=== PATIENT | female | born 1935 | race Caucasian/White ===

== ENCOUNTER → 2016-10-31 | Outpatient (CLI) | payer OTHER | END | disposition home or self-care (01) | LOC: YCFC.O 14:09 | PROVIDERS: ATTEND Nurse Practitioner Family | DX: I10 Essential (primary) hypertension (principal); R60.0 Localized edema; R10.11 Right upper quadrant pain; Z13.220 Encounter for screening for lipoid disorders; R10.13 Epigastric pain; R30.0 Dysuria ==

== ENCOUNTER → 2016-11-04 | Outpatient (CLI) | payer OTHER ==
--- NOTE | 2016-11-04 14:12 | US ---
EXAM DESCRIPTION: Gall Bladder CLINICAL HISTORY: 81 years Female, RUQ PAIN COMPARISON: None. FINDINGS: Limited abdominal sonography demonstrates a normal appearance of the region of the pancreas and a normal-appearing liver with normal echogenicity. Gallbladder is distended and abnormal with either conglomerate or likely very large stones measuring is much is 4.8 cm in length. Significant wall thickening is not apparent and the common bile duct is normal at 2.6 mm. No abdominal ascites is noted. No focal cystic or solid hepatic masses noted. IMPRESSION: 1. Distended gallbladder with likely a very large stone or conglomerate stones almost completely filling the gallbladder with dense acoustic shadowing. 2. No wall thickening or edema the gallbladder or ductal dilation is noted. 3. Normal appearance of the liver and pancreas with nonvisualization of the right kidney. Electronically signed by: Ethan Ghosh MD 11/04/2016 2:11 PM CDT
== END | disposition home or self-care (01) ==
LOC: US 09:38
PROVIDERS: ATTEND Nurse Practitioner Family
DX: R10.11 Right upper quadrant pain (principal)

== ENCOUNTER → 2017-01-03 | Outpatient (CLI) | payer OTHER | END | disposition home or self-care (01) | LOC: YCFC.O 16:53 | PROVIDERS: ATTEND Nurse Practitioner Family | DX: R60.9 Edema, unspecified (principal); R06.02 Shortness of breath ==

== ENCOUNTER → 2017-01-11 | Outpatient (CLI) | payer OTHER | END | disposition home or self-care (01) | LOC: YCFC.O 09:49 | PROVIDERS: ATTEND Nurse Practitioner Family | DX: I50.9 Heart failure, unspecified (principal) ==

== ENCOUNTER → 2017-03-15 | Outpatient (CLI) | payer OTHER | END | disposition home or self-care (01) | LOC: LAB.O 11:58 | PROVIDERS: ATTEND Surgery | DX: E04.9 Nontoxic goiter, unspecified (principal) ==

== ENCOUNTER → 2017-03-16 | Outpatient (CLI) | payer OTHER ==
--- NOTE | 2017-03-16 12:44 | MRI ---
EXAM DESCRIPTION: Brain w/o Contrast CLINICAL HISTORY: AMNESIA COMPARISON: Ultrasound of the thyroid gland on the same visit. TECHNIQUE: Multiplanar, high-field MRI unit, multiple diffusion sequences, multiple conventional sequences without contrast. FINDINGS: Bilateral multiple foci of bright FLAIR and T2-weighted signal in the periventricular white matter and romo-white matter junctions of the cerebral hemispheres. . Similar signal bilaterally in the junction of the hsu radiata and superior basal ganglia. No hemorrhage, no cerebral edema, no mass-effect. Normal signal in the brainstem and cerebellar hemispheres. No hemorrhage, no cerebral edema, no mass-effect. Concordance of the diffusion and non-diffusion sequences with no evidence of acute or subacute infarction. Cortical sulci, ventricles, and other CSF spaces, and the subdural spaces are normally configured for patients age. No effacement or displacement. No midline shift. No extra-axial hemorrhage. Normal flow signal void in the major vessels of the kake Wade, and the venous sinuses. IACs are symmetric bilaterally. Normal signal in the bilateral mastoid air cells. No mass effect in the bilateral cerebellopontine angles. Pituitary gland occupies most of the sella. Base of the cerebellar tonsils is above the foramen magnum. Minimal mucoperiosteal thickening in the paranasal sinuses. The bony calvarium is intact. IMPRESSION: 1. Abnormal white matter signal in the periventricular areas and subcortical white matter most consistent with bilaterally diffuse cerebral microvascular disease. Less likely to represent migraine headaches or demyelinating process. No hemorrhage, no mass effect, no midline shift, no cerebral edema. 2. Normal noncontrast MRI diffusion scan of the brain with no evidence of acute or subacute infarction. 3. Minimal chronic paranasal sinusitis. Electronically signed by: Clovis Trevizo MD 03/16/2017 12:43 PM [facility]
--- NOTE | 2017-03-16 13:24 | US ---
EXAM DESCRIPTION: Thyroid: Ultrasound. CLINICAL HISTORY: GOITER. Bilateral goiters removed and right thyroidectomy in 2012. Enlargement on the left side of the neck. COMPARISON: Patient also had MRI scan of the brain today. Ultrasound-guided fine-needle aspiration and sampling left thyroid nodules today. TECHNIQUE: Transcutaneous scannin-dimensional and Doppler modes. FINDINGS: Right lobe surgically removed. Minimal soft tissue in the right thyroid fossa. Juxta-thyroid masses/fluid: none. Left lobe dimensions 8.7 cm sagittal plane. 6.7 x 4.1 cm in the transverse plane. Heterogeneous echoes. Multiple cystic and complex lesions. 1 complex lesion has transverse diameter 1.8 cm, located near the lateral capsule. Second complex lesion more medially with transverse diameter 1.9 cm. Cyst with transverse diameter 9 mm. Subcapsular solid mass measuring 2.2 cm transverse and 0.6 cm AP, anterior lateral. Increased vascularity in the left lobe. No microcalcifications. Contour left lobe smooth. Juxta-thyroid masses/fluid: none. Isthmus thickness 4.5 mm. Heterogeneous echoes. No cystic, no solid, and no complex lesions. Minimally vascular. Contour smooth. IMPRESSION: 1. Markedly enlarged left lobe thyroid gland with multiple complex nodules and cysts. Increased vascularity. At least 2 nodules demonstrate findings which meet the imaging criteria for Fine needle aspiration sampling according to RP best practice guidelines, adopted from ACR white paper and Aragon 3-tiered guidelines on incidental thyroid nodules. Please see below.* 2. Residual thyroid tissue versus scar tissue or fatty tissue in the right thyroid bed. The isthmus is slightly thickened. 3. No discrete solid masses, cystic masses, or edema in the surrounding soft tissues. *Further evaluation by thyroid US recommended for: -Solitary incidental thyroid nodule (ITN) with high risk imaging features (locally invasive nodule or suspicious lymph nodes) -Solitary ITN of any size in pediatric patients <= 18 years of age -Solitary ITN >= 1 cm in axial plane in patients between 18 and 35 years of age -Solitary ITN >= 1.5 cm in axial plane in patients >= 35 years of age -Heterogeneous enlarged thyroid gland -ITN avid on FDG-PET or other nuclear medicine (MIBI and octreotide) scans. FNA biopsy is also recommended for PET avid nodules. 2.No f/u imaging is recommended for ITN's not meeting the above criteria. 3.For multiple thyroid nodules, the above recommendations for solitary ITN are to be applied to the largest nodule. 4.No US or f/u recommended for ITN's without high risk features in patients with limited life expectancy or significant co-morbidities, unless clinically warranted. 5.These recommendations do not apply to patients w/ increased risk for thyroid cancer or patients with symptomatic thyroid disease. Recommendations for f/u of Incidental Thyroid Nodules (ITN) found on CT, MR, NM and Extrathyroidal US are based upon the ACR white paper and Aragon 3-tiered system for managing ITN's: J Am Abdirahman Radiology 2015 Jun;12(2): 143-50 Electronically signed by: Clovis Trevizo MD 03/16/2017 1:23 PM [facility]
--- NOTE | 2017-03-16 16:28 | US ---
EXAM DESCRIPTION: Biopsy of Thyroid CLINICAL HISTORY: 81 yearsFemale. Prior bilateral thyroid goiter excision and right thyroidectomy 2011. Enlargement left neck soft tissues COMPARISON: Thyroid ultrasound prior to the procedure. TECHNIQUE: Procedure was explained to the patient with risks and benefits. The patient gave verbal and written consent. Sterile preparation draping. 1% xylocaine dermal anesthetic. Sterile ultrasound guidance. A total of 5 passes in 2 complex lesions and cysts in the left lobe; 3 needle samplings with a separate 1.5 inch, 25-gauge needle per sample, and 2 aspiration, with a separate 1.5 inch, 25-gauge needle/10-cc syringe set, per aspiration. Each sample was placed on a separate slide and fixed in 95% alcohol container. for later pathologic examination at remote facility. . Aspirate and needle placed in Saccomanno fluid container. Patient tolerated procedure well, with no immediate complications. FINDINGS: 4 scan images demonstrate echogenic needle in a left lateral complex lesion, solid subcapsular lesion anterior left aspect, and a mostly cystic complex lesion more medially in the left lobe. IMPRESSION: Successful, ultrasound-guided fine-needle sampling and aspiration of multiple lesions in the left thyroid lobe. Pathology reports are pending at remote laboratory. Electronically signed by: Clovis Trevizo MD 03/16/2017 4:27 PM [employer]
== END | disposition home or self-care (01) ==
LOC: MRI 10:43
PROVIDERS: ATTEND Nurse Practitioner Family
DX: R41.3 Other amnesia (principal); E04.9 Nontoxic goiter, unspecified

== ENCOUNTER 2017-07-17 05:45 | Day surgery (SDC) | payer OTHER ==
--- NOTE | 2017-07-12 17:10 | RAD ---
EXAM DESCRIPTION: Chest,2 Views CLINICAL HISTORY: PRE OP COMPARISON: None TECHNIQUE: PA/lateral FINDINGS: There is no acute appearing cardiac or pulmonary abnormality. Wide superior mediastinum is thought to be vascular. There is rightward tracheal deviation suggesting left thyroid mass or asymmetric goiter. Patient had a sonogram March 16, 2017 which showed markedly enlarged left thyroid lobe with multiple nodules and cysts. Heart size is prominent with normal pulmonary vascularity. No pleural effusion or pneumothorax. Lungs are clear with no consolidating infiltrate. Lateral view shows intact sternum and prominent spurring in the T-spine. IMPRESSION: Prominent heart without congestive failure. Tracheal deviation consistent with enlarged left thyroid lobe. Electronically signed by: John Ibrahim MD 07/12/2017 5:09 PM CDT
[2017-07-17] MEDS ORDERED: LACTATED RINGERS 1,000 ML ONE ×2 (06:06→11:36)
[2017-07-17] MEDS ORDERED: levoFLOXacin 500MG IV 100 ML IVPB ONE (06:08)
[2017-07-17] MEDS ORDERED: BUPIVACAINE 0.25% W/EPI 50 ML VIAL INJ ONE (06:57)
[2017-07-17] MEDS ORDERED: HEPARIN SODIUM (PORCINE) 10,000 UNITS/ML VIAL ONE (06:57)
[2017-07-17] MEDS ORDERED: fentaNYL CITRATE INJ 50 MCG/ML AMP ONE ×2 (07:52→07:55)
[2017-07-17] MEDS ORDERED: LIDOCAINE 2 % GEL 5 ML TUBE TOP ONE (07:56)
[2017-07-17] MEDS ORDERED: ROCURONIUM BROMIDE 10 MG/ML VIAL ONE (07:56)
[2017-07-17] MEDS ORDERED: NITROGLYCERIN 2% 1 GM UD TOP ONE (10:00)
[2017-07-17] MEDS ORDERED: NEOSTIGMINE METHYLSULFATE 1 MG/ML ML IV ONE (10:00)
[2017-07-17] MEDS ORDERED: ePHEDrine SULF 50 MG/ML IV ONE (10:00)
[2017-07-17] MEDS ORDERED: PROPOFOL 200 MG/20 ML VIAL IV ONE (10:00)
[2017-07-17] MEDS ORDERED: DEXAMETHASONE INJ 10 MG/ML VIAL IV ONE (10:00)
[2017-07-17] MEDS ORDERED: ONDANSETRON INJ 4 MG/2 ML VIAL IV ONE (10:00)
--- NOTE | 2017-07-17 10:46 | OP ---
DATE OF PROCEDURE: 07/17/17 PREOPERATIVE DIAGNOSIS: 1. Symptomatic cholelithiasis. POSTOPERATIVE DIAGNOSIS: 1. Symptomatic cholelithiasis. 2. Chronic cholecystitis. PROCEDURE: 1. Laparoscopic cholecystectomy with intraoperative cholangiography using fluoroscopy. SURGEON: Jerry Conroy MD. BUSINESS DEVELOPMENT EXECUTIVE: None. ANESTHESIA: Local infiltration of 0.25% Marcaine with epinephrine and general endotracheal anesthesia. INDICATION: The patient is an 82-year-old female with sonographically diagnosed cholelithiasis and the patient had significant symptoms with right upper quadrant abdominal pain associated with fatty meals, bloating and nausea. The patient was brought to the Surgical Suite today for cholecystectomy after the risks, benefits and alternatives to the procedure were discussed and accepted. FINDINGS: Multiple adhesions to the liver and gallbladder from the omentum. There were multiple adhesions in the midline from a previous laparotomy. DESCRIPTION OF PROCEDURE: After adequate general endotracheal anesthesia was obtained, the patient was prepped and draped in the usual sterile manner. Surgical time-out was taken. The infraumbilical area was infiltrated with local anesthesia. A curvilinear incision was fashioned and carried down through the subcutaneous tissue to the midline fascia using blunt dissection. Traction sutures were placed on either side of the midline. A small incision was made in the midline fascia and then with some dissection, the peritoneum was divided and the trocar was placed. Upon retracting the trocar to use the balloon, it was noted that there adhesions in the way, so at this point the abdomen was tympanitic in all four quadrants with COD. The patient was placed in reverse Trendelenburg position and turned to the left side. The upper abdominal ports were placed under direct vision in the usual manner. When this was done the camera was moved to the subxiphoid port and the adhesions around the port at the umbilicus were taken down using blunt dissection without difficulty. When this was done, the gallbladder was grasped, retracted anteriorly and laterally. After the gallbladder was retracted, the adhesions to the gallbladder into the liver were taken down using electrocautery. The neck of the gallbladder was retracted laterally. The triangle of Calot was then explored with the cystic duct and cystic artery identified and isolated. The cystic duct was hemoclipped once proximally. A small incision was made in the cystic duct. The cholangiogram catheter was introduced through a introducer in the right upper quadrant, introduced into the cystic duct and clipped in place. Cholangiograms were then taken using fluoroscopy which revealed free flow into the duodenum with no filling defects or strictures noted. There was quite a large common bile duct, but no strictures were identified and no filling defects were identified. At this point, the cystic duct catheter was removed. The cystic duct was hemoclipped four times distally and divided between the hemoclips. The cystic artery was then clipped twice proximally and divided using electrocautery. The gallbladder was then dissected free from the gallbladder bed of the liver using electrocautery. The gallbladder was placed in an EndoCatch bag and removed from the infraumbilical port site in the usual manner under direct vision with some difficulty crushing the stones to allow removal through the incision. When this was done, the port was replaced. The subhepatic space and subphrenic space were irrigated copiously with saline. The effluent was noted to be clear. The kaitlin hepatis and the gallbladder bed of the liver were both inspected and no bleeding or bile leak was identified. The upper abdominal ports were removed under direct vision and good hemostasis was noted. At this point, the CO2, the laparoscope and the infraumbilical port were removed. The infraumbilical port site fascia was approximated with a single [id number] suture of 0 Vicryl. Subcutaneous tissue was irrigated at all the incisions with saline. Skin edges were approximated with interrupted 4-0 Vicryl subcuticular sutures, benzoin and Steri-Strips. Sterile dressings were applied. The patient was awakened and taken to the Recovery Room in good and stable condition. Estimated blood loss was less than 50 mL. All sponge, needle and instrument counts were correct. #[id number] [facility]
[2017-07-17] MEDS ORDERED: MORPHINE SULFATE INJ 10 MG/ML VIAL ONE (11:05)
[2017-07-17] MEDS ORDERED: KETOROLAC TROMETHAMINE INJ 30 MG/ML VIAL ONE (11:28)
[2017-07-17] MEDS ORDERED: traMADol HCL 50 MG TAB ONE (12:10)
[2017-07-17 14:02] VITALS: BP 128/68; TEMP 97.9; O2SAT 97
== END 2017-07-17 12:35 | disposition home or self-care (01) ==
LOC: AMB 05:45
PROVIDERS: ATTEND Surgery
DX: K80.10 Calculus of gallbladder with chronic cholecystitis without obstruction (principal); I10 Essential (primary) hypertension; Z79.899 Other long term (current) drug therapy; Z88.0 Allergy status to penicillin; I25.10 Atherosclerotic heart disease of native coronary artery without angina pectoris; K21.9 Gastro-esophageal reflux disease without esophagitis; F32.9 Major depressive disorder, single episode, unspecified
CPT/HCPCS: 00790; 36415; 47563; 71046; 76000; 80053; 81001; 85025; 87086; 88304; 93005; J1100; J1644; J1885; J1956; J2270; J2405; J2710; J3010; J3490; J7120

== ENCOUNTER → 2017-09-29 | Outpatient (CLI) | payer OTHER | LOC: YCFC.O 14:29 | PROVIDERS: ATTEND Nurse Practitioner Family | DX: I10 Essential (primary) hypertension (principal); E78.2 Mixed hyperlipidemia; R00.8 Other abnormalities of heart beat; Z51.81 Encounter for therapeutic drug level monitoring; Z79.899 Other long term (current) drug therapy ==

== ENCOUNTER → 2017-12-29 | Outpatient (CLI) | payer OTHER | LOC: YCFC.O 08:47 | PROVIDERS: ATTEND Nurse Practitioner Family | DX: I10 Essential (primary) hypertension (principal); E78.2 Mixed hyperlipidemia; R00.8 Other abnormalities of heart beat ==

== ENCOUNTER → 2018-08-29 | Outpatient (CLI) | payer OTHER | LOC: LAB.O 07:55 | PROVIDERS: ATTEND Nurse Practitioner Family | DX: R00.8 Other abnormalities of heart beat (principal); E04.9 Nontoxic goiter, unspecified; I10 Essential (primary) hypertension; E78.2 Mixed hyperlipidemia ==

== ENCOUNTER → 2019-03-01 | Outpatient (CLI) | payer OTHER | LOC: YCFC.O 07:58 | PROVIDERS: ATTEND Nurse Practitioner | DX: E04.9 Nontoxic goiter, unspecified (principal); I10 Essential (primary) hypertension; R00.8 Other abnormalities of heart beat; Z51.81 Encounter for therapeutic drug level monitoring ==

== ENCOUNTER 2019-04-09 14:44 | Inpatient (IN) | payer MEDICARE, OTHER ==
[2019-04-09] MEDS ORDERED: HYDROmorphone HCL INJ 2 MG/ML VIAL IV ONE ×3 (14:57→15:59)
[2019-04-09] MEDS ORDERED: ONDANSETRON INJ 4 MG/2 ML VIAL IV ONE ×2 (14:57→15:07)
[2019-04-09] MEDS ORDERED: PROCHLORPERAZINE INJ 10 MG/2 ML VIAL IV ONE (15:05)
[2019-04-09] MEDS ORDERED: SODIUM CHLORIDE 0.9% IVPB ONE (15:06)
[2019-04-09] MEDS ORDERED: MAGNESIUM SULFATE IVPB ONE (15:06)
[2019-04-09] MEDS ORDERED: fentaNYL CITRATE INJ 50 MCG/ML AMP IV ONE (15:07)
--- NOTE | 2019-04-09 15:32 | RAD ---
Single frontal radiograph pelvis with radiographs left hip Indication: fall Comparison: None. Impression: Markedly comminuted intratrochanteric left femoral neck fracture noted with superior migration of the distal fracture fragment by approximately 6.5 cm. No additional pelvic fractures identified however evaluation is limited given marked osteopenia. Mild bilateral facet arthritis. Lower lumbar disc disease. Moderate pubic symphysis osteoarthritis. Electronically signed by: Washington Kerr MD 04/09/2019 3:30 PM [facility]
--- NOTE | 2019-04-09 15:32 | RAD ---
Single frontal radiograph pelvis with radiographs left hip Indication: fall Comparison: None. Impression: Markedly comminuted intratrochanteric left femoral neck fracture noted with superior migration of the distal fracture fragment by approximately 6.5 cm. No additional pelvic fractures identified however evaluation is limited given marked osteopenia. Mild bilateral facet arthritis. Lower lumbar disc disease. Moderate pubic symphysis osteoarthritis. Electronically signed by: Washington Kerr MD 04/09/2019 3:30 PM [facility]
--- NOTE | 2019-04-09 16:02 | ED.PDOC ---
History of Present Illness - General Chief Complaint: Trauma Stated Complaint: fall with left hip pain Time Seen by Provider: 04/09/19 14:57 Source: patient, RN notes reviewed, Vital Signs reviewed, EMS notes reviewed, family - daughter, EMS Exam Limitations: no limitations - History of Present Illness Initial Comments: patient is an 83-year-old white female who presents with complaints of left hip pain status post fall at home. This occurred at approximately 10:00 this morning. Patient had no loss of consciousness. This was a slip and fall. Patient denies any headache, chest pain, shortness of breath, nausea, vomiting, diarrhea. Patient has a history of an irregular heartbeat for which she takes metoprolol and digoxin. patient has a history of hypertension. She complains of pain as 10 out of 10, sharp, stabbing, throbbing in nature. Worse with movement. Better when she lay still. Timing/Duration: 1-3 hours Severity: severe Improving Factors: immobilization Worsening Factors: movement Associated Symptoms: denies symptoms Allergies/Adverse Reactions: Allergies Penicillin G Allergy (Verified 01/24/14 16:56) Home Medications: Ambulatory Orders Cholecalciferol [Vitamin D] 1,000 unit PO DAILY 01/24/14 Digoxin 0.125 mg PO BEDTIME 01/24/14 K-Dur 10 meq DAILY 01/24/14 Metoprolol Succinate [Metoprolol Succinate ER] 50 mg PO DAILY 01/24/14 amLODIPine BESYLATE [Norvasc] 5 mg PO DAILY 01/24/14 Tramadol HCl 50 mg QID 07/12/17 Gabapentin 300 mg PO DAILY 04/09/19 Lisinopril 5 mg PO BID 04/09/19 Sulindac 200 mg PO BID 04/09/19 Review of Systems - Review of Systems Constitutional: States: no symptoms reported, see HPI EENTM: States: no symptoms reported Respiratory: States: no symptoms reported Cardiology: States: no symptoms reported Gastrointestinal/Abdominal: States: no symptoms reported Genitourinary: States: no symptoms reported Musculoskeletal: States: see HPI, joint pain. Denies: back pain, neck pain Skin: States: no symptoms reported Neurological: States: no symptoms reported. Denies: headache, paresthesia, pre- existing deficit, tingling, weakness Endocrine: States: no symptoms reported Hematologic/Lymphatic: States: no symptoms reported All other Systems: Reviewed and Negative Past Medical History (General) - Patient Medical History Hx Seizures: No Hx Stroke: No Hx Dementia: No Hx Asthma: No Hx of COPD: No Hx Cardiac Disorders: Yes - heart murmur, irregular heart beat Hx Congestive Heart Failure: No Hx Pacemaker: No Hx Hypertension: Yes Hx Thyroid Disease: Yes - thyroidectomy, left side mass Hx Diabetes: No Hx Gastroesophageal Reflux: No Hx Renal Disease: No Hx Cancer: Yes - cervical Hx of HIV: No Hx Hepatitis C: No Hx MRSA: No Surgical History: cholecystectomy - Vaccination History Hx Tetanus, Diphtheria Vaccination: Yes Hx Influenza Vaccination: Yes Hx Pneumococcal Vaccination: No - Social History Hx Tobacco Use: No Hx Chewing Tobacco Use: No Hx Alcohol Use: No Hx Substance Use: No Hx Substance Use Treatment: No Hx Depression: No Hx Physical Abuse: No Hx Emotional Abuse: No Hx Suspected Abuse: No - Female History Patient : No Family Medical History - Family History Father Living Status: Hx Family Cancer: Yes - lung cancer Mother Living Status: Hx Family Cancer: Yes - lung cancer Physical Exam - Physical Exam General Appearance: Alert, Anxious, Obvious distress, Well Developed, Well Groomed, Well Hydrated, Well Nourished Eye Exam: bilateral normal Ears, Nose, Throat: hearing grossly normal, normal ENT inspection, normal pharynx Neck: non-tender, full range of motion, supple, thyromegaly - on the left. Patient had a thyroidectomy on the right. Respiratory: chest non-tender, lungs clear, normal breath sounds, no respiratory distress, no accessory muscle use Cardiovascular/Chest: normal peripheral pulses, regular rate, rhythm, no edema, no gallop, no JVD, no murmur Peripheral Pulses: radial,right: 2+, radial,left: 2+, dorsalis pedis,right: 2+, dorsalis pedis,left: 2+ Gastrointestinal/Abdominal: normal bowel sounds, non tender, soft, no organomegaly, no pulsatile mass Back Exam: normal inspection, no CVA tenderness, no vertebral tenderness Extremity: no calf tenderness, normal capillary refill, pelvis stable, other - tender to palpation of the left hip. Neurologic: squad boss II-XII nml as tested, no motor/sensory deficits, alert, normal mood/affect, oriented x 3 Skin Exam: normal color, warm/dry Lymphatic: no adenopathy Progress - Progress Progress: differential diagnosis: Contusion, hip fracture, pelvis fracture, groin sprain among others. 04/09/19 16:05 Patient with a intertrochanteric fracture on the left femur. Have discussed with the hospitalist as well as anesthesia and orthopedics and plan admission for further evaluation and repair of said fracture.I discussed this plan of care with the patient and her family and they voiced understanding and agreement Adrian Tejada M.D. #[id number] - Results/Orders Results/Orders: 04/09/19 15:05 IV:Start .ONCE 04/09/19 15:30 EKG STAT 04/09/19 16:18 Catheter:Anand QSHIFT 04/09/19 16:19 URINALYSIS Stat Laboratory Results - last 24 hr 04/09/19 04/09/19 04/09/19 13:20 15:20 15:20 WBC 13.7 H RBC 4.50 Hgb 14.0 Hct 42.4 MCV 94.2 MCH 31.1 H MCHC 33.0 RDW 13.6 Plt Count 279 MPV 9.1 Absolute Neuts (auto) 12.20 H Absolute Lymphs (auto) 0.80 L Absolute Monos (auto) 0.50 Absolute Eos (auto) 0.10 Absolute Basos (auto) 0.00 Neutrophils % 88.8 H Lymphocytes % 6.0 L Monocytes % 3.9 Eosinophils % 0.9 L Basophils % 0.4 Sodium 139 Potassium 3.2 L Chloride 102 Carbon Dioxide 27 Anion Gap 13.2 BUN 28 H Creatinine 1.33 H BUN/Creatinine Ratio 21.1 H Random Glucose 132 H Serum Osmolality 284.9 Calcium 9.5 Total Bilirubin 0.8 AST 25 ALT 12 Alkaline Phosphatase 42 Serum Total Protein 7.2 Albumin 4.5 Globulin 2.7 Albumin/Globulin Ratio 1.7 Lipase 38 Digoxin 0.7 L - EKG/XRAY/CT CT Ordered: No CT Interpretation Call Back: No Departure - Departure Clinical Impression: Fall Qualifiers: Encounter type: initial encounter Qualified Code(s): W19.XXXA - Unspecified fall, initial encounter Intertrochanteric fracture of femur Qualifiers: Encounter type: initial encounter Fracture type: closed Fracture alignment: displaced Laterality: left Qualified Code(s): S72.142A - Displaced intertrochanteric fracture of left femur, initial encounter for closed fracture Time of Disposition: 15:30 Disposition: Admit Patient Condition: Good Home Medications: Ambulatory Orders Cholecalciferol [Vitamin D] 1,000 unit PO DAILY 01/24/14 Digoxin 0.125 mg PO BEDTIME 01/24/14 K-Dur 10 meq DAILY 01/24/14 Metoprolol Succinate [Metoprolol Succinate ER] 50 mg PO DAILY 01/24/14 amLODIPine BESYLATE [Norvasc] 5 mg PO DAILY 01/24/14 Tramadol HCl 50 mg QID 07/12/17 Gabapentin 300 mg PO DAILY 04/09/19 Lisinopril 5 mg PO BID 04/09/19 Sulindac 200 mg PO BID 04/09/19 Decision To Admit - Decistion To Admit Decision to Admit Reason: Admit from ER Decision to Admit Date: 04/09/19 Decision to Admit Time: 15:30
--- NOTE | 2019-04-09 16:24 | HP ---
SUPERVISING PHYSICIAN: Ethan Huber M.D. CHIEF COMPLAINT: Same level fall with a left hip fracture. HISTORY OF PRESENT ILLNESS: Ms. Montalvo is an 83 year-old female patient that presented to the Emergency Room today after she sustained a same level fall. She noted that at approximately 10:00 AM this morning she had slipped on the carpet trying to open the door and fell on her left hip which resulted in severe pain. She denied any loss of consciousness, any headaches, chest pain, shortness of breath, nausea, vomiting or diarrhea. The patient does have a history of atrial fibrillation but regular heart rate on metoprolol and digoxin as well as hypertension. On initial presentation to the Emergency Room, a hip and pelvis x-ray was completed which revealed a markedly comminuted intertrochanteric left femoral neck fracture with some superior migration of the distal fracture fragment. The Emergency Room physician consulted with Dr. Uriostegui, orthopedic surgeon, who requested the patient be admitted for consultation and a possible gamma nail procedure in the morning. She was stable hemodynamically. Laboratory studies showed just a mildly elevated white count. Chemistries showed just a mildly low potassium and BUN is a little elevated at 28 as well as creatinine at 1.3. Urine was just showing a microscopic hematuria. She was given pain management in the Emergency Room and is now going to be admitted for further surgical management of a left hip fracture. She was admitted in stable condition. PAST MEDICAL HISTORY: 1. Atrial fibrillation on digoxin and metoprolol. No chronic anticoagulation with monitor showing sinus rhythm. 2. Hypertension. 3. History of cervical cancer with surgical treatment with hysterectomy. 4. Hypothyroidism, surgically induced due to thyroidectomy with no mention of malignancy. PAST SURGICAL HISTORY: 1. Cholecystectomy in 2018. 2. Thyroid surgery in 2011 with thyroid removal. 3. Hysterectomy due to cervical cancer. 4. Recent vein stripping bilaterally within the last 2 years. HOME MEDICATIONS: 1. Amlodipine 5 mg daily. 2. Tramadol 50 mg q.i.d. 3. Sulindac 200 mg b.i.d. 4. Metoprolol 50 mg daily. 5. Lisinopril 5 mg b.i.d. 6. K-Dur 10 mEq daily. 7. Gabapentin 300 mg daily. 8. Digoxin 0.125 mg at bedtime. 9. Vitamin D 1,000 units daily. ALLERGIES: PENICILLIN. FAMILY HISTORY: Mother at 66 and father at 75, both with malignant neoplastic lung disease. She has 1 brother who is healthy. She has 2 children that are healthy. SOCIAL HISTORY: The patient is a retired telephone employee. She lives in [place], [place] with her granddaughter. She is . She has never smoked. Never drank alcohol. Does not use illicit drugs. REVIEW OF SYSTEMS: CONSTITUTIONAL: Denies any fever or chills, general malaise. HEENT: Denies any headaches, vision changes, sore throat, ear aches, nasal congestion. No difficulty with swallowing. RESPIRATORY: Denies any coughing, wheezing or shortness of breath. CARDIOVASCULAR: Denies any palpitations, syncopal episodes, chest pains. GASTROINTESTINAL: Denies any dysuria, hematuria or polyuria. MUSCULOSKELETAL: Left hip pain status post fall as noted in History of Present Illness. SKIN: Denies any easy bruising, unexplained lesions, rashes or moles. NEUROLOGIC: Denies any headaches, vision changes. She notes that she has had some change in her gait but denies any actual ataxia. She has chronic paresthesias from peripheral neuropathies. HEMATOLOGIC: Denies any easy bruising, unexplained bleeding or transfusion reactions. PHYSICAL EXAMINATION: VITAL SIGNS: Temperature 98, pulse 66, blood pressure 116/58, respirations 16, satting 98% on 2 liters nasal cannula. Admission weight was 68 kg. GENERAL: The patient is well nourished and well hydrated. Appears to be in no acute distress and comfortable. HEENT: Tympanic membranes are clear bilaterally. Oropharynx is pink and moist without any lesions. NECK: Supple with noted thyromegaly on the left with the patient having a previous bilateral thyroidectomy but with return of a tumor on the left with no noted pain on palpation or compromised airway. RESPIRATORY: Chest is clear to auscultation bilaterally without any rhonchi, wheezing or rales. CARDIOVASCULAR: Regular rate and rhythm without appreciable murmurs, gallops, or rubs. ABDOMEN: Soft, non-tender. Positive bowel sounds. BACK: No CVA or vertebral tenderness. Atraumatic. EXTREMITIES: Some tenderness to palpation over the left hip with some slight shortening and internal rotation of the left leg. NEUROLOGIC: Cranial nerves II-XII are grossly intact. Facial features were symmetrical. Extraocular movements are within normal limits. There is no notable nystagmus. She is alert and oriented times three. SKIN: Warm, pink and dry. LABORATORY: White count was elevated at 13,700, hemoglobin 14, hematocrit 42.4, platelet count 279,000. Differential does show a left shift. Chemistries just showed a mildly low potassium at 3.2, otherwise electrolytes were within normal limits. BUN was 28, creatinine 1.3. Liver functions were all within normal limits. Lipase normal at 38. Urinalysis just showed microhematuria. Digoxin level was 0.7. RADIOLOGY: Pelvis and hip x-ray showed a markedly comminuted intertrochanteric left femoral neck fracture. 12-lead EKG shows normal sinus rhythm with no ST or T wave changes concerning for ischemic or acute injury pattern. ASSESSMENT: 1. Same level fall with resulting in a comminuted intertrochanteric left femoral neck fracture with no mention of loss of consciousness. 2. Hypertension. 3. Chronic atrial fibrillation with controlled ventricular rate showing normal sinus rhythm on EKG with the patient on digoxin and metoprolol. No chronic anticoagulation. 4. Mild electrolyte imbalance with hypokalemia. 5. Renal insufficiency likely prerenal azotemia. 6. Leukocytosis likely due to a demarginalization from stress due to same level fall and current acute fracture of hip. 7. Hypothyroidism, surgically induced, on supplementation. PLAN: Ms. Montalvo is going to be admitted for orthopedic surgical consultation for left hip fracture. The plan would be to do a gamma nail procedure in the morning. She will be NPO overnight. She will be on deep venous thrombosis prophylaxis per protocol postoperatively. Will resume her home medications as appropriate to care. Will continue with further workup as needed for surgical clearance. I will go ahead and start her on some normal saline to help correct hopefully her kidney function and potassium. Lucio Salamanca has been notified of the patient's admission and Dr. Uriostegui has been consulted in the Emergency Room. I did discuss with her postoperative plan of care and she is willing and wanting to go to [facility] postoperatively, therefore I will place a consultation with Thelma through [facility] to facilitate that referral. Anticipate her length of stay to be at least 2 to 3 days. Until we can transition her to outpatient management will continue to monitor and treat as needed. #[id number] [facility]
[2019-04-09] MEDS ORDERED: SODIUM CHLORIDE 0.9% (FLUSH) 10 ML SYG IV PRN (17:24)
[2019-04-09] MEDS ORDERED: ONDANSETRON INJ 4 MG/2 ML VIAL IV PRN (17:24)
[2019-04-09] MEDS ORDERED: ACETAMINOPHEN 325 MG TAB PO PRN (17:24)
[2019-04-09] MEDS: MORPHINE SULFATE INJ 10 MG/ML VIAL IV PRN (21:10)
[2019-04-09] MEDS: KCL 20 MEQ/NS 1,000 ML IVS PRN (21:15)
[2019-04-09] MEDS: DIGOXIN 0.125 MG TAB PO SCH (21:16)
[2019-04-09] MEDS: IV SET AND CAP CHANGE INJ INJ SCH (21:16)
[2019-04-09] MEDS: SULINDAC 200 MG PO SCH (21:17)
--- NOTE | 2019-04-09 22:31 | CT ---
EXAM DESCRIPTION: CT Pelvis CLINICAL HISTORY: 83 years Female Left Hip Fracture TECHNIQUE: Noncontrast axial images acquired through the pelvis. Coronal and sagittal reformatted images also provided. This CT exam was performed according to our departmental dose-optimization program, which includes one or more of the following dose reduction techniques: automated exposure control, adjustment of the mA and/or kV according to patient size, and/or use of iterative reconstruction technique. COMPARISON: Relation is made with the pelvic radiograph obtained earlier the same day FINDINGS: Again seen is an acute, comminuted, and impacted intertrochanteric fracture of the left proximal femur with varus angulation. No dislocation. No other acute pelvic fracture. Both hip joints appear normal. Mild degenerative changes at the sacroiliac joints. Moderate degenerative changes in the lower lumbar spine. No aggressive osseous lesion. Soft tissue hemorrhage surrounding the fracture without soft tissue gas or foreign body. Anand catheter in place. No pelvic sidewall hematoma. Atherosclerosis without visualized aneurysm. IMPRESSION: Acute, comminuted, impacted, and angulated intertrochanteric fracture of the left proximal femur without dislocation. No other pelvic fracture. Electronically signed by: Raquel Phillip MD 04/09/2019 10:30 PM [facility]
[2019-04-10] MEDS: MORPHINE SULFATE INJ 10 MG/ML VIAL IV PRN ×2 (04:13→20:54)
[2019-04-10] MEDS: KCL 20 MEQ/NS 1,000 ML IVS PRN ×2 (05:29→14:48)
[2019-04-10] MEDS ORDERED: PANTOPRAZOLE SODIUM IV 40 MG VIAL ONE (06:41)
[2019-04-10] MEDS ORDERED: PANTOPRAZOLE SODIUM IV 40 MG VIAL IV ONE (06:45)
[2019-04-10] MEDS ORDERED: KETAMINE HCL 100 MG/ML VIAL ONE (06:50)
[2019-04-10] MEDS ORDERED: MIDAZOLAM INJ 2 MG/2 ML VIAL ONE (06:50)
[2019-04-10] MEDS ORDERED: HYDROmorphone HCL INJ 2 MG/ML VIAL ONE ×2 (06:50→09:51)
[2019-04-10] MEDS ORDERED: BUPIVACAINE 0.25% W/EPI 50 ML VIAL INJ ONE ×2 (06:55→08:03)
[2019-04-10] MEDS ORDERED: ceFAZolin SODIUM 1 GM VIAL ONE ×2 (06:56→07:04)
[2019-04-10] MEDS ORDERED: VANCOMYCIN HCL INJ 1,000 MG VIAL IVPB ONE ×3 (06:56→08:05)
[2019-04-10] MEDS ORDERED: SODIUM CHLORIDE 0.9% 100ML 100 ML IVPB ONE (07:04)
[2019-04-10] MEDS ORDERED: SODIUM CHLORIDE 0.9% 250ML 250 ML ONE (07:04)
[2019-04-10] MEDS ORDERED: VANCOMYCIN HCL INJ 1,000 MG in SODIUM CHLORIDE 0.9% 250ML 250 ML IVPB ONE (07:09)
[2019-04-10] MEDS ORDERED: ceFAZolin SODIUM 2 GRAMS PREMI 2 GM in PREMIX BAG 1 BAG IVPB SCH ×2 (07:15→08:45)
[2019-04-10] MEDS ORDERED: ELECTROLYTE-A 1,000 ML IVS ONE (07:27)
[2019-04-10] MEDS ORDERED: ACETAMINOPHEN IV 1000MG 100 ML ONE (07:35)
[2019-04-10] MEDS ORDERED: ceFAZolin SODIUM 1 GM VIAL INJ ONE (08:03)
[2019-04-10] MEDS: amLODIPine BESYLATE 5 MG TAB PO SCH (08:08)
[2019-04-10] MEDS: SULINDAC 200 MG PO SCH ×2 (08:08→20:47)
[2019-04-10] MEDS: METOPROLOL SUCCINATE XL 50 MG TAB PO SCH (08:08)
[2019-04-10] MEDS ORDERED: VANCOMYCIN HCL INJ 1,000 MG in SODIUM CHLORIDE 0.9% 250ML 250 ML IVPB SCH (09:00)
[2019-04-10] MEDS ORDERED: LEVALBUTEROL NEBS 1.25 MG/3 ML VIAL NEB ONE (09:14)
[2019-04-10] MEDS ORDERED: HYDROmorphone HCL INJ 2 MG/ML VIAL IV ONE ×2 (09:55→10:05)
[2019-04-10] MEDS ORDERED: LEVALBUTEROL NEBS 1.25 MG/3 ML VIAL NEB PRN (11:03)
[2019-04-10] MEDS: ENOXAPARIN SODIUM 30 MG/0.3 ML SYG SUBCU SCH ×2 (11:08→20:47)
[2019-04-10] MEDS ORDERED: DEX 5% W/NACL 0.45% 1000ML 1,000 ML IVS ONE (11:11)
[2019-04-10] MEDS ORDERED: SODIUM CHLORIDE 0.45% 1000ML 1,000 ML IVS PRN (11:11)
--- NOTE | 2019-04-10 11:59 | PN ---
SUPERVISING PHYSICIAN: Ethan Huber MD DATE: 04/10/19 SUBJECTIVE: The patient is sitting up in her bed. She just returned to her room from surgery. She is slightly lethargic, but she does answer questions appropriately. She denies any shortness of breath, nausea or vomiting. She is tolerating ice chips without any problem. She still does have some pain, but she has recently been given some Dilaudid and she does say it feels much better than yesterday. OBJECTIVE: VITAL SIGNS: Temperature 98.3. Heart rate 66. Blood pressure 130/66. Respiratory rate 16. O2 saturation 93% on 2 liters nasal cannula. It is reported that she did go down to 88% in the Operating Room without oxygen and after utilizing oxygen, it was up to the low 90s. RESPIRATORY: Essentially clear to auscultation bilaterally. CARDIAC: Regular rate and rhythm. GASTROINTESTINAL: Abdomen is soft, nondistended, nontender. Bowel sounds are hypoactive. NEUROLOGIC: She is awake, somewhat lethargic postoperatively. EXTREMITIES: She has a dressing to her left hip that is dry and intact. LABORATORY: Electrolytes are basically within normal limits with BUN 34, creatinine 1.71. All other labs and films have been reviewed via the EMR. ASSESSMENT: 1. Same level fall with resulting in a comminuted intertrochanteric left femoral neck fracture with Gamma nail repair performed by Dr. Bryson Uriostegui, postoperative day 0. 2. Hypertension. 3. Chronic atrial fibrillation with controlled ventricular rate showing normal sinus rhythm on EKG. She is on digoxin and metoprolol. No chronic anticoagulation. 4. Mild electrolyte imbalance that has normalized. 5. Renal insufficiency, likely prerenal azotemia. 6. Leukocytosis, likely due to a demargination from stress due to same level fall and acute fracture of hip. 7. Hypothyroidism, on supplementation. PLAN: We will continue present supportive care. Orthopedic issues will be per Dr. Bryson Uriostegui, orthopedic surgeon. She will begin her physical therapy tomorrow for strengthening and conditioning. She also has an evaluation by [facility] tomorrow for discharge assistance. I have ordered aggressive pulmonary hygiene including scheduled and p.r.n. breathing treatments. I will recheck her lab in the morning. We will continue to monitor the patient closely and follow as needed. #[id number] [facility]
[2019-04-10] MEDS ORDERED: raNITIdine HCL INJ 25 MG/ML VIAL IV ONE (12:00)
[2019-04-10] MEDS ORDERED: ePHEDrine SULF 50 MG/ML IV ONE (12:00)
[2019-04-10] MEDS ORDERED: PHENYLEPHRINE INJ 1ML 10 MG/ML VIAL IV ONE (12:00)
[2019-04-10] MEDS ORDERED: DEXAMETHASONE INJ 10 MG/ML VIAL IV ONE (12:00)
[2019-04-10] MEDS ORDERED: SODIUM CHLORIDE 0.9% 50 ML VIAL INJ ONE (12:00)
[2019-04-10] MEDS ORDERED: LIDOCAINE 1% 10 ML VIAL INJ ONE (12:00)
[2019-04-10] MEDS ORDERED: PROPOFOL 200 MG/20 ML VIAL IV ONE (12:00)
[2019-04-10] MEDS ORDERED: MAGNESIUM SULFATE INJ 1 GM/2 ML VIAL IVPB ONE (12:00)
[2019-04-10] MEDS: LEVALBUTEROL NEBS 1.25 MG/3 ML VIAL NEB SCH ×3 (12:39→21:34)
--- NOTE | 2019-04-10 12:41 | RAD ---
EXAM DESCRIPTION: Hip,Left 2 Views CLINICAL HISTORY: post op COMPARISON: April 09, 2019 IMPRESSION: 2 views of the left femur show interval placement of intramedullary ivy with single distal interlocking screw at the level of the distal femur. Gamma nail fixation of an intertrochanteric fracture is seen with improved alignment of the fracture fragments. There remains displacement of the lesser trochanter. Soft tissue emphysema from recent surgery is seen. Electronically signed by: Isaac Pacheco MD 04/10/2019 12:40 PM [facility]
--- NOTE | 2019-04-10 12:43 | RAD ---
Single frontal radiograph pelvis Indication: post op Comparison: April 09, 2019 Impression: ORIF of the previous noted intratrochanteric femoral neck fracture with intramedullary femoral ivy and interlocking screw noted. No new complicating features are identified. Mild bilateral hip osteoarthritis. Lower lumbar disc disease. Moderate pubic symphysis osteoarthritis. Electronically signed by: Washington Kerr MD 04/10/2019 12:41 PM [facility]
--- NOTE | 2019-04-10 13:13 | CONS ---
CHIEF COMPLAINT: Left hip pain. HISTORY OF PRESENT ILLNESS: Ms. Montalvo is an 83-year-old female that fell at her home. She had fallen and was on the ground for several hours. She was finally found and taken to the Emergency Room. X-rays in the Emergency Room revealed a fracture of the left hip. She denied any other injury associated with that fall and denied any neurologic symptoms. She had no significant radiation of the pain. After discussing the risks, benefits and alternatives to operative therapy with her, she has given informed consent for operative therapy. PAST MEDICAL HISTORY: 1. Atrial fibrillation. 2. Hypertension. 3. Cervical cancer. 4. Hypothyroidism. PAST SURGICAL HISTORY: 1. Cholecystectomy. 2. Thyroidectomy. 3. Hysterectomy. 4. Vein stripping. MEDICATIONS: 1. Amlodipine. 2. Tramadol. 3. Sulindac. 4. Metoprolol. 5. Lisinopril. 6. K-Dur. 7. Gabapentin. 8. Digoxin. 9. Vitamin D. ALLERGIES: PENICILLIN. SOCIAL HISTORY: The patient lives in [place] and is . She does not drink, smoke or use any illicit drugs. FAMILY HISTORY: None pertinent to today's complaint. REVIEW OF SYSTEMS: Negative except as indicated in the History of Present Illness. HEENT: The patient reports no symptoms. RESPIRATORY: The patient reports no symptoms. CARDIOVASCULAR: The patient reports no symptoms. GASTROINTESTINAL: The patient reports no symptoms GENITOURINARY: The patient reports no symptoms. MUSCULOSKELETAL: Negative except as noted in History of Present Illness. SKIN: The patient reports no symptoms. NEUROLOGIC: The patient reports no symptoms. PHYSICAL EXAMINATION: VITAL SIGNS: Blood pressure 116/58. Pulse 66. Respirations 16. O2 saturation 98% on 2 liters. Weight 68 kg. MENTAL STATUS: The patient is awake, alert, and is able to give a good history and participate in the physical. The patient is oriented to person, place and time. SKIN: Normal tone and turgor. HEENT: Normocephalic, atraumatic. Pupils equal, round and reactive. Mucosal membranes are moist. NECK: Normal range of motion. No thyromegaly, no lymphadenopathy. CHEST: Normal respiratory excursion. CARDIAC: Regular rate and rhythm. No murmurs, rubs or gallops. MUSCULOSKELETAL: The bilateral upper extremities show full active range of motion without significant pain. She has intact sensation in the extremities. They are warm and well perfused. Strength is 5/5. She has no malalignment and no deformity. Skin is intact in the extremities. The right lower extremity shows no deformity and no malalignment. She has intact sensation. She has difficulty with range of motion only secondary to pain with range of motion on the left hip. She has no laxity. Plantar flexion and dorsiflexion strength of the ankle is 5/5. The left lower extremity shows an internal rotation deformity. She has intact skin. There is no swelling. The extremity is warm and well perfused. She does have intact sensation equivalent to the contralateral side. RADIOLOGY: X-rays show a comminuted intertrochanteric/subtrochanteric femur fracture. ASSESSMENT: 1. Left hip fracture. PLAN: The plan at this point is for intramedullary nailing. We have discussed the risks, benefits, and alternatives to that and the patient has given informed consent. [facility][id number] [facility]
--- NOTE | 2019-04-10 13:17 | OP ---
DATE OF PROCEDURE: 04/10/19 PREOPERATIVE DIAGNOSIS: 1. Left hip fracture. POSTOPERATIVE DIAGNOSIS: 1. Left hip fracture. PROCEDURE: 1. Gamma nailing of left hip. SURGEON: Bryson Uriostegui MD. ANDROID ARCHITECT: Clovis Winters CST, SA-C. ANESTHESIA: General anesthesia. COMPLICATIONS: None. FINDINGS: Comminuted intertrochanteric/subtrochanteric fracture of the left hip. INDICATION: Ms. Montalvo has a history of a fall that occurred on the day of presentation. She had the acute onset of pain. She was noted to have a fracture of the proximal femur and after discussing the risks, benefits and alternatives to operative therapy with her, she gave informed consent for Gamma nailing. PROCEDURE: The patient was brought to the Operating Room and placed in the supine position. General anesthesia was administered and the patient was placed on the fracture table. The fracture was provisionally reduced under fluoroscopic imaging and after reduction, the leg and hemipelvis were sterilely prepped and draped. An incision was made just proximal to the greater trochanter and dissection was carried through the iliotibial band and down to the greater trochanter. A starting pin was placed and a one-step reamer was used to open the femoral canal. A 125 degree angled Gamma nail was inserted into the canal to the appropriate level. A guide pin was placed from the lateral cortex into the femoral head. The appropriate length compression screw was measured and inserted with the placement guided under direct imaging. Following that, the distal locking screw was drilled, measured, and placed under imaging. The proximal locking screw was placed through the outrigger into the top of the nail and the outrigger removed. The final construct was imaged and the wounds were thoroughly irrigated, followed by closure with Monocryl suture. Sterile dressings were placed. The patient was awoken from anesthesia and taken to the Recovery Room. POSTOPERATIVE PLAN: She will be toe-touch weightbearing. #[id number] [facility]
[2019-04-10] MEDS ORDERED: HYDROcodone 5MG/APAP 325MG 1 EA TAB ONE (13:37)
[2019-04-10] MEDS: HYDROcodone 5MG/APAP 325MG 1 EA TAB PO PRN ×2 (13:45→19:12)
[2019-04-10] MEDS ORDERED: ENOXAPARIN SODIUM 30 MG/0.3 ML SYG SUBCU ONE (19:07)
[2019-04-10] MEDS: DIGOXIN 0.125 MG TAB PO SCH (20:47)
[2019-04-11] MEDS: DEX 5% W/NACL 0.45% 1000ML 1,000 ML IVS PRN ×3 (00:07→17:12)
[2019-04-11] MEDS: HYDROcodone 5MG/APAP 325MG 1 EA TAB PO PRN ×3 (00:12→20:31)
[2019-04-11] MEDS: MORPHINE SULFATE INJ 10 MG/ML VIAL IV PRN ×2 (01:41→14:20)
--- NOTE | 2019-04-11 07:21 | RAD ---
EXAM DESCRIPTION: Fluoroscopy Up to 1Hr CLINICAL HISTORY: 84 years Female, left hip fx;gamma COMPARISON: None. TECHNIQUE: Operative C-arm was utilized for internal fixation of the left hip with a total of four images obtained. Fluoroscopic time was 138.7 seconds with a dose of 15.28 mGy. FINDINGS: The C-arm operative images submitted demonstrate an interlocking of femoral head and neck screw or nail interlocking with an intramedullary ivy. The exact location in the region of the femoral head cannot be determined based on the images submitted. The intramedullary ivy is anchored distally with a transverse screw. IMPRESSION: Internal fixation left hip fracture with intramedullary ivy and interlocking nail/screw. The exact position of the nail in the region of the femoral head is not well visualized on the images submitted. Postoperative plain films demonstrate the threaded screw well positioned centrally in the femoral head. Electronically signed by: Ethan Ghosh MD 04/11/2019 7:19 AM [facility]
[2019-04-11] MEDS ORDERED: ENOXAPARIN SODIUM 30 MG/0.3 ML SYG SUBCU ONE (07:24)
[2019-04-11] MEDS: amLODIPine BESYLATE 5 MG TAB PO SCH (08:41)
[2019-04-11] MEDS: ENOXAPARIN SODIUM 30 MG/0.3 ML SYG SUBCU SCH (08:41)
[2019-04-11] MEDS: SULINDAC 200 MG PO SCH (08:41)
[2019-04-11] MEDS: METOPROLOL SUCCINATE XL 50 MG TAB PO SCH (08:41)
[2019-04-11] MEDS: LEVALBUTEROL NEBS 1.25 MG/3 ML VIAL NEB SCH ×4 (08:55→21:25)
[2019-04-11] MEDS ORDERED: diphenhydrAMINE HCL 50 MG/ML VIAL IV PRN (16:49)
[2019-04-11] MEDS: DIGOXIN 0.125 MG TAB PO SCH (20:30)
[2019-04-11] MEDS: BIFIDOBACTERIUM INFANTIS 4 MG CAP PO SCH (20:31)
--- NOTE | 2019-04-11 21:08 | PN ---
DATE: 04/11/19 SUPERVISING PHYSICIAN: Ethan uHber M.D. SUBJECTIVE: The patient is sitting up in bed. She is about to do her physical therapy. She has complaints of some diarrhea but the nurse reports that he stool is somewhat loose, but she has only had several stools today. Otherwise no complaints of shortness of breath or chest pain. No nausea or vomiting. OBJECTIVE: VITAL SIGNS: Temperature 97.8, heart rate 73, blood pressure 111/61, respiratory rate 18, O2 saturation 94% on 2 liters nasal cannula. RESPIRATORY: Essentially clear to auscultation bilaterally. CARDIAC: Regular rate and rhythm. GASTROINTESTINAL: Abdomen is soft, nondistended, non-tender. Bowel sounds are positive. NEUROLOGIC: She is awake, alert and oriented times three. EXTREMITIES: She has a dressing to her left lateral hip that is dry and intact. Bilateral pedal pulses are palpable at +2. LABORATORY: White blood cells are 11.8, hemoglobin 9.9 and 30.2. She has a left shift on her differential. Electrolytes are basically within normal limits with the exception of her calcium is low at 7.8. BUN 27, creatinine 1.75. All other labs and films have been reviewed via the EMR. ASSESSMENT: 1. Same level fall with resulting in a comminuted intertrochanteric fracture of her left femoral neck with Gamma nail repair performed by Dr. Bryson Uriostegui, orthopedic surgeon. Postoperative day #1. 2. Hypertension. 3. Chronic atrial fibrillation with controlled ventricular rate showing normal sinus rhythm on EKG. She is on digoxin and metoprolol. No chronic anticoagulation. 4. Mild electrolyte imbalance that has normalized. 5. Renal insufficiency, likely prerenal azotemia. 6. Leukocytosis, likely due to a demargination from stress due to same level fall and acute fracture of hip. 7. Hypothyroidism, on supplementation. PLAN: We will continue present supportive care. If she continues to have diarrhea, we will do stool studies. I have added probiotics. [facility] is coming to evaluate her this afternoon and hopefully after her rehab here in the hospital with Physical therapy for strengthening and conditioning, she can go to [facility]. All orthopedic issues will be per Dr. Bryson Uriostegui, orthopedic surgeon. Her hemoglobin has dropped today, so I will repeat an H&H in the morning. Otherwise will continue to monitor closely and follow as needed. #[id number] [facility]
[2019-04-12] MEDS: DEX 5% W/NACL 0.45% 1000ML 1,000 ML IVS PRN (02:48)
[2019-04-12] MEDS: HYDROcodone 5MG/APAP 325MG 1 EA TAB PO PRN ×3 (04:57→14:40)
[2019-04-12] MEDS: LEVALBUTEROL NEBS 1.25 MG/3 ML VIAL NEB SCH ×4 (08:54→20:58)
[2019-04-12] MEDS: amLODIPine BESYLATE 5 MG TAB PO SCH (09:22)
[2019-04-12] MEDS: BIFIDOBACTERIUM INFANTIS 4 MG CAP PO SCH ×2 (09:22→21:37)
[2019-04-12] MEDS: METOPROLOL SUCCINATE XL 50 MG TAB PO SCH (09:22)
[2019-04-12] MEDS: RIVAROXABAN 10 MG TAB PO SCH (09:22)
--- NOTE | 2019-04-12 09:52 | PN ---
DATE: 04/12/19 SUBJECTIVE: She is resting comfortably right now. She has good pain control. OBJECTIVE: Afebrile. Vital signs stable. Wounds are clean. There are no signs or symptoms of infection. ASSESSMENT: Status post Gamma nailing. PLAN: The plan at this point is for her to continue her toe-touch weightbearing. #[id number] [facility]
[2019-04-12] MEDS: IV SET AND CAP CHANGE INJ INJ SCH (16:40)
[2019-04-12] MEDS: HYDROcodone 10MG/APAP 325MG 1 EA TAB PO PRN (19:56)
--- NOTE | 2019-04-12 20:43 | PN ---
DATE: 04/12/19 SUPERVISING PHYSICIAN: Ethan Huber M.D. SUBJECTIVE: The patient is sitting up in bed. She continues to improve but has some pain. Denies chest pain or shortness of breath. We discussed going to [facility] and we are awaiting verification from her insurance as well as when [facility] can accept her as a patient. I informed her it would be today or tomorrow. She agreed. OBJECTIVE: VITAL SIGNS: Temperature 98.6, heart rate 73, blood pressure 123/68, respiratory rate 18, O2 saturation 91% on 3 liters nasal cannula. RESPIRATORY: Essentially clear to auscultation bilaterally. CARDIAC: Regular rate and rhythm. GASTROINTESTINAL: Abdomen is soft, nondistended, non-tender. Bowel sounds are positive. EXTREMITIES: She has a dressing to her left hip that is dry and intact. Bilateral pedal pulses are palpable at +2. NEUROLOGIC: She is awake, alert and oriented times three. LABORATORY: Hemoglobin is 9.4 with hematocrit 28.3. Electrolytes are basically within normal limits. Creatinine is slightly improved down to 1.45. All other labs and films have been reviewed via the EMR. ASSESSMENT: 1. Same level fall with resulting in a comminuted intertrochanteric fracture of her left femoral neck with Gamma nail repair performed by Dr. Bryson Uriostegui, orthopedic surgeon. Postoperative day #2. 2. Hypertension. 3. Chronic atrial fibrillation with controlled ventricular rate showing normal sinus rhythm on EKG. She is on digoxin and metoprolol. No chronic anticoagulation. 4. Mild electrolyte imbalance that has normalized. 5. Renal insufficiency, likely prerenal azotemia. 6. Leukocytosis, likely due to a demargination from stress due to same level fall and acute fracture of hip. 7. Hypothyroidism, on supplementation. PLAN: We will continue present supportive care. Her insurance has okayed her discharge to [facility], but [facility] cannot take her until in the morning, so she will be discharged in the morning. Orthopedic issues will be per Dr. Bryson Uriostegui. She will continue with physical therapy until she is discharged. Will continue to monitor closely and follow as needed. [facility][id number] [facility]
[2019-04-12] MEDS: DIGOXIN 0.125 MG TAB PO SCH (21:37)
[2019-04-13] MEDS: HYDROcodone 10MG/APAP 325MG 1 EA TAB PO PRN ×3 (02:12→13:33)
[2019-04-13] MEDS ORDERED: ONDANSETRON 4 MG TAB PO PRN (06:16)
[2019-04-13] MEDS: LEVALBUTEROL NEBS 1.25 MG/3 ML VIAL NEB SCH ×2 (08:59→12:59)
[2019-04-13] MEDS: BIFIDOBACTERIUM INFANTIS 4 MG CAP PO SCH (09:18)
[2019-04-13] MEDS: amLODIPine BESYLATE 5 MG TAB PO SCH (09:18)
[2019-04-13] MEDS: METOPROLOL SUCCINATE XL 50 MG TAB PO SCH (09:18)
[2019-04-13] MEDS: RIVAROXABAN 10 MG TAB PO SCH (09:18)
[2019-04-13] MEDS ORDERED: traMADol HCL 50 MG TAB PO PRN (10:44)
[2019-04-13] MEDS ORDERED: GABAPENTIN 300 MG CAP PO ONE (12:41)
[2019-04-13 15:41] VITALS: BP 131/71; TEMP 98.8; O2SAT 93
--- NOTE | 2019-04-15 09:36 | DS ---
SUPERVISING PHYSICIAN: Ethan Huber MD DISCHARGE DIAGNOSIS: 1. Same level fall resulting in a comminuted intertrochanteric fracture of her left femoral neck with Gamma nail repair performed by Dr. Bryson Uriostegui, orthopedic surgeon. Postoperative day #3. 2. Hypertension. 3. Chronic atrial fibrillation with controlled ventricular rate showing normal sinus rhythm on EKG. She is on digoxin and metoprolol. No chronic anticoagulation. 4. Mild electrolyte imbalance that has normalized. 5. Renal insufficiency, likely prerenal azotemia. 6. Leukocytosis, likely due to a demargination from stress due to same level fall and acute fracture of hip. 7. Hypothyroidism, on supplementation. 8. Chronic obstructive pulmonary disease with mild exacerbation. She is on Xopenex at home and has a remote history of smoking. HISTORY OF PRESENT ILLNESS: This is an 84-year-old female patient that came to the Emergency Room today after she sustained a same level fall. At approximately 10:00 AM the morning she was admitted, she slipped on the carpet trying to open the door and fell on her left hip which resulted in severe pain. There was no loss of consciousness, any headaches, chest pain, shortness of breath, nausea, vomiting or diarrhea. The patient has a history of atrial fibrillation, but regular heart rate on metoprolol and digoxin as well as history of hypertension. Her initial hip and pelvis x-ray was completed which revealed a markedly comminuted intertrochanteric left femoral neck fracture with some superior migration of the distal fracture fragment. The Emergency Room physician consulted with Dr. Uriostegui, orthopedic surgeon, who requested the patient be admitted for consultation and a possible Gamma nail procedure. She was stable hemodynamically. Laboratory studies showed a mildly elevated white count. Chemistries showed a mildly low potassium and BUN was slightly elevated at 28 as well as creatinine at 1.3. Urine showed some microscopic hematuria. She was given pain management in the Emergency Room and was admitted for further surgical management of a left hip fracture. She was admitted in stable condition. HOSPITAL COURSE: She was admitted to the hospital and surgical consultation was done per Dr. Bryson Uriostegui, orthopedic surgeon. Preoperative orders were initiated and her home medications were also restarted. She had no intraoperative complications. Postoperatively, she did well although she did have some issues getting her pain under control and her hydrocodone had to be increased. Due to her pain issues, she also had some difficulty completing her pulmonary hygiene. She was on Xopenex at home and has a remote smoking history. She progressed through her physical therapy for strengthening and conditioning. She was evaluated by [facility] rehab facility in [place] and today she [facility] be [facility] for further strengthening and conditioning. LABORATORY: Followup WBCs were 11,800 with hemoglobin 9.4, hematocrit 28.3. Electrolytes were basically within normal limits, but her creatinine did go up to 1.75 and was 1.45 yesterday. She had a slightly low calcium at 8. RADIOLOGY: Her radiology reports are per the EMR. DISCHARGE PLAN: The patient will be discharged to [facility] in [place] via ambulance. She is in stable condition. She is to resume her previous diet. She is to increase her activity per Physical Therapy. She is to followup with Dr. Uriostegui after she is discharged from [facility] as well as [facility]. Her home medications were restarted with the exception of her Sulindac, which is an NSAID and was discontinued due to her kidney function. It has not been resumed. She is also to have her Xopenex breathing treatments as well as Xarelto 10 mg for 31 additional days. She is to complete her Xarelto on 05/14/19. She was encouraged to have good pulmonary hygiene and return to the hospital or Tessy Callahan's office for any problems or complications. DISCHARGE MEDICATIONS: 1. Vitamin D. 2. Amlodipine. 3. Metoprolol. 4. Digoxin. 5. K-Dur. 6. Tramadol. 7. Gabapentin. 8. Lisinopril. 9. Align. 10. Hydrocodone. 11. Xopenex. 12. Xarelto. #[id number] [facility]
== END 2019-04-13 13:55 | DRG 481 ==
LOC: ER 14:44 → OBSVTOIN 16:23 → MS 16:23
PROVIDERS: ADMIT Nurse Practitioner Family; ATTEND Nurse Practitioner Acute Care
PROC: 0QS736Z Reposition Left Upper Femur with Intramedullary Internal Fixation Device, Percutaneous Approach (ICD-10-PCS; principal; 2019-04-09)
DX: S72.142A Displaced intertrochanteric fracture of left femur, initial encounter for closed fracture (principal); I48.20 Chronic atrial fibrillation, unspecified; J44.1 Chronic obstructive pulmonary disease with (acute) exacerbation; E87.6 Hypokalemia; G89.18 Other acute postprocedural pain; N28.9 Disorder of kidney and ureter, unspecified; D72.829 Elevated white blood cell count, unspecified; R31.29 Other microscopic hematuria; I10 Essential (primary) hypertension; E89.0 Postprocedural hypothyroidism; W01.0XXA Fall on same level from slipping, tripping and stumbling without subsequent striking against object, initial encounter; Y92.009 Unspecified place in unspecified non-institutional (private) residence as the place of occurrence of the external cause; Z85.41 Personal history of malignant neoplasm of cervix uteri; Z79.891 Long term (current) use of opiate analgesic; Z88.0 Allergy status to penicillin; Z79.899 Other long term (current) drug therapy

== ENCOUNTER → 2019-05-13 | Outpatient (CLI) | payer MEDICARE ==
--- NOTE | 2019-05-13 10:21 | RAD ---
EXAM DESCRIPTION: Hip,Left 2 Views CLINICAL HISTORY: 84 years, Female, PAIN IN LEFT HIP COMPARISON: None TECHNIQUE: X-ray 4 view left hip and femur FINDINGS: Recent open reduction internal fixation of intratrochanteric fracture of the left femur. Alignment unchanged since the comparison study. No bony healing detected. No complication detected. IMPRESSION: 1. Postop changes with no complication and no significant interval healing. Electronically signed by: Genaro Thomas MD 05/13/2019 10:19 AM [facility]
== END ==
LOC: RAD 08:11
PROVIDERS: ATTEND Orthopaedic Surgery
DX: M25.552 Pain in left hip (principal); Z98.890 Other specified postprocedural states

== ENCOUNTER → 2019-06-08 | Outpatient (CLI) | payer MEDICARE | LOC: NC 09:17 | PROVIDERS: ATTEND Emergency Medicine | DX: R30.0 Dysuria (principal) ==

== ENCOUNTER 2019-06-12 06:47 | Emergency (ER) | payer MEDICARE ==
--- NOTE | 2019-06-12 07:17 | ED.PDOC ---
History of Present Illness - General Chief Complaint: Abdominal Pain Stated Complaint: abd pain, N/V, Time Seen by Provider: 06/12/19 07:12 - History of Present Illness Initial Comments: 84 yo F PMH HTN Thyroid Disease A Fib removal of pessa ring with infection and femur fracture with ORIF and hardware placement on left femur 2 months ago presents c/o abdominal pain nausea decreased appetite disturbed rest and generalized weakness x 2 days. Granddaughter at bedside. Has PMD Ozzy for follow up. Denies fever admits chills and nausea denies vomiting diarrhea chest pain sob diaphoresis. Admits decreased appetite and disturbed rest with dark stools no change in bladder. Denies drinking or smoking denies FH HTN DM no other c/o today. Review of Systems - Review of Systems Constitutional: States: see HPI EENTM: States: see HPI Respiratory: States: see HPI Cardiology: States: see HPI Gastrointestinal/Abdominal: States: see HPI Genitourinary: States: see HPI Musculoskeletal: States: see HPI Skin: States: see HPI Neurological: States: see HPI Endocrine: States: see HPI Hematologic/Lymphatic: States: see HPI All other Systems: Reviewed and Negative Past Medical History (General) - Patient Medical History Hx Seizures: No Hx Stroke: No Hx Dementia: No Hx Asthma: No Hx of COPD: No Hx Cardiac Disorders: Yes - heart murmur, irregular heart beat Hx Congestive Heart Failure: No Hx Pacemaker: No Hx Hypertension: Yes Hx Thyroid Disease: Yes - thyroidectomy, left side mass Hx Diabetes: No Hx Gastroesophageal Reflux: No Hx Renal Disease: No Hx Cancer: Yes - cervical Hx of HIV: No Hx Hepatitis C: No Hx MRSA: No - Vaccination History Hx Tetanus, Diphtheria Vaccination: Yes Hx Influenza Vaccination: Yes Hx Pneumococcal Vaccination: No - Social History Hx Tobacco Use: No Hx Chewing Tobacco Use: No Hx Alcohol Use: No Hx Substance Use: No Hx Substance Use Treatment: No Hx Depression: No Hx Physical Abuse: No Hx Emotional Abuse: No Hx Suspected Abuse: No - Female History Patient : No Family Medical History - Family History Father Living Status: Hx Family Cancer: Yes - lung cancer Mother Living Status: Hx Family Cancer: Yes - lung cancer Physical Exam - Physical Exam General Appearance: No apparent distress Eyes, Ears, Nose, Throat Exam: normal ENT inspection Neck: full range of motion, thyromegaly - on left Respiratory: normal breath sounds, no respiratory distress Cardiovascular/Chest: irregularly irregular Gastrointestinal/Abdominal: non tender, soft Rectal Exam: deferred Back Exam: normal inspection Extremity: normal range of motion Neurologic: no motor/sensory deficits Skin Exam: normal color Progress - Progress Progress: 06/12/19 07:18 A/P-Abdominal Pain Nausea-nausea is worse after PO flagyl, iv bolus cbc cmp lipase trop cxr zofran lactate blood cultures levaquin flagyl ct abdomen pelvis ua ekg cardiac cath lab manager pulse ox reassess 06/12/19 07:34 06/12/19 09:13 Laboratory Tests 06/12/19 06/12/19 06/12/19 07:15 07:15 07:15 WBC 10.6 RBC 4.95 Hgb 15.0 Hct 44.6 MCV 90.0 MCH 30.2 MCHC 33.6 RDW 13.9 Plt Count 259 MPV 9.5 Absolute Neuts (auto) 9.20 H Absolute Lymphs (auto) 0.60 L Absolute Monos (auto) 0.70 Absolute Eos (auto) 0.00 Absolute Basos (auto) 0.00 Neutrophils % 87.1 H Lymphocytes % 6.0 L Monocytes % 6.2 Eosinophils % 0.3 L Basophils % 0.4 PT INR PTT (SP) Sodium 140 Potassium 2.8 L Chloride 100 L Carbon Dioxide 25 Anion Gap 17.8 BUN 18 Creatinine 0.87 BUN/Creatinine Ratio 20.7 H Random Glucose 120 H Serum Osmolality 282.5 Lactic Acid Calcium 9.6 Total Bilirubin 1.1 H AST 17 ALT 13 Alkaline Phosphatase 87 Creatine Kinase 38 CK-MB (CK-2) 2.8 CK-MB (CK-2) % Not Reportable Troponin I 0.21 H* Serum Total Protein 7.3 Albumin 4.3 Globulin 3.0 Albumin/Globulin Ratio 1.4 Lipase 32 Urine Color Urine Appearance Urine pH Ur Specific [place] Urine Protein Urine Glucose (UA) Urine Ketones Urine Blood Urine Nitrite Urine Bilirubin Urine Urobilinogen Ur Leukocyte Esterase Urine RBC Urine WBC Ur Epithelial Cells Amorphous Sediment Urine Bacteria Urine Mucus Group A Strep Rapid 06/12/19 06/12/19 06/12/19 07:30 07:30 07:30 WBC RBC Hgb Hct MCV MCH MCHC RDW Plt Count MPV Absolute Neuts (auto) Absolute Lymphs (auto) Absolute Monos (auto) Absolute Eos (auto) Absolute Basos (auto) Neutrophils % Lymphocytes % Monocytes % Eosinophils % Basophils % PT 11.0 H INR 1.11 PTT (SP) 23.5 Sodium Cancelled Potassium Cancelled Chloride Cancelled Carbon Dioxide Cancelled Anion Gap Cancelled BUN Cancelled Creatinine Cancelled BUN/Creatinine Ratio Cancelled Random Glucose Cancelled Serum Osmolality Cancelled Lactic Acid Calcium Cancelled Total Bilirubin Cancelled AST Cancelled ALT Cancelled Alkaline Phosphatase Cancelled Creatine Kinase CK-MB (CK-2) CK-MB (CK-2) % Troponin I Cancelled Serum Total Protein Cancelled Albumin Cancelled Globulin Cancelled Albumin/Globulin Ratio Cancelled Lipase Cancelled Urine Color Urine Appearance Urine pH Ur Specific [place] Urine Protein Urine Glucose (UA) Urine Ketones Urine Blood Urine Nitrite Urine Bilirubin Urine Urobilinogen Ur Leukocyte Esterase Urine RBC Urine WBC Ur Epithelial Cells Amorphous Sediment Urine Bacteria Urine Mucus Group A Strep Rapid 06/12/19 06/12/19 06/12/19 07:30 07:45 08:05 WBC RBC Hgb Hct MCV MCH MCHC RDW Plt Count MPV Absolute Neuts (auto) Absolute Lymphs (auto) Absolute Monos (auto) Absolute Eos (auto) Absolute Basos (auto) Neutrophils % Lymphocytes % Monocytes % Eosinophils % Basophils % PT INR PTT (SP) Sodium Potassium Chloride Carbon Dioxide Anion Gap BUN Creatinine BUN/Creatinine Ratio Random Glucose Serum Osmolality Lactic Acid 1.4 Calcium Total Bilirubin AST ALT Alkaline Phosphatase Creatine Kinase CK-MB (CK-2) CK-MB (CK-2) % Troponin I Serum Total Protein Albumin Globulin Albumin/Globulin Ratio Lipase Urine Color Yellow Urine Appearance Cloudy Urine pH 7.0 Ur Specific [place] 1.025 Urine Protein >=300 H Urine Glucose (UA) Negative Urine Ketones 40 H Urine Blood Trace-lysed H Urine Nitrite Negative Urine Bilirubin Small H Urine Urobilinogen 0.2 Ur Leukocyte Esterase Small H Urine RBC 3-5 H Urine WBC 20-30 H Ur Epithelial Cells 5-10 Amorphous Sediment 1+ Urine Bacteria 2+ H Urine Mucus Small Group A Strep Rapid Positive EXAM DESCRIPTION: CT ABDOMEN AND PELVIS WITH CONTRAST CLINICAL HISTORY: pain vomiting, CT pelvis 04/09/2019. COMPARISON: CT pelvis 04/09/2019. TECHNIQUE: CT of the abdomen and pelvis are performed after IV contrast administration. No oral contrast was given. Multiplanar reconstructions were obtained. FINDINGS: Bibasilar dependent atelectasis. . The liver is normal in contour and enhancement. The gallbladder is surgically absent. Mild reservoir effect within the CBD and proximal intrahepatic ducts. Normal tapering of the CBD traverse the ampulla [place]. The Spleen and pancreas are unremarkable. Incompletely rotated kidneys with anterior position of the bilateral renal hilus representing variant anatomy. No hydronephrosis or nephrolithiasis. Small renal cysts. The colon is decompressed. Scattered colonic diverticula (more pronounced on the proximal transverse colon/hepatic flexure) without definite evidence of diverticulitis. No focal bowel wall thickening or bowel obstruction. The appendix is not clearly visualized, however no focal inflammatory change within the right lower abdominal quadrant is identified to suggest acute appendicitis. Few fluid-filled loops of mildly thickened small bowel within the left and lower abdomen. There is no lymphadenopathy, inflammation, or free fluid observed. The partially decompressed bladder is unremarkable. The uterus is surgically absent. Previously noted vaginal pessary has been removed. Moderate atherosclerotic disease affects the aorta and its branches. Left hip gamma nail intramedullary fixation securing a recent, healing left intertrochanteric fracture. No new displaced pelvic fracture. Moderate degenerative changes of the spine IMPRESSION: 1. Mild to moderate colonic diverticulosis (more pronounced along the proximal transverse colon) without evidence of acute diverticulitis. 2. Few fluid-filled loops of mildly thickened small bowel within the abdomen, nonspecific, but may represent mild enteritis. No bowel obstruction. 3. Prior cholecystectomy. This exam was performed according to our departmental dose- optimization program, which includes automated exposure control, adjustment of the mA and/or kV according to patient size and/or use of iterative reconstruction technique. Electronically signed by: Eamon Rodriguez DO 06/12/2019 9:03 AM [facility] EXAM DESCRIPTION: Chest,1 View CLINICAL HISTORY: 84 years Female, abd pain COMPARISON: July 12, 2017 TECHNIQUE: AP portable chest. FINDINGS: Single view of the chest demonstrates calcified tortuous aorta and stable mild cardiomegaly with normal vascularity. Slightly coarsened markings in the right infrahilar region likely represent mild fibrosis. No consolidation is present. The left lung base is clear. No free abdominal air on this upright portable study noted. No large pleural effusions seen. IMPRESSION: Cardiomegaly and tortuous aorta with no acute cardiopulmonary disease otherwise Electronically signed by: Ethan Ghosh MD 06/12/2019 7:37 AM [facility] Elevated Troponin, NSTEMI Transfer - Results/Orders Results/Orders: EKG-non specific TW changes irregularly irregular rhythm rate controlled atrial fibrillation at 99bpm Departure - Departure Clinical Impression: NSTEMI (non-ST elevated myocardial infarction), Elevated troponin, Strep pharyngitis, Dehydration Abdominal pain Qualifiers: Abdominal location: unspecified location Qualified Code(s): R10.9 - Unspecified abdominal pain Afib Qualifiers: Atrial fibrillation type: unspecified Qualified Code(s): I48.91 - Unspecified atrial fibrillation Time of Disposition: 09:34 Disposition: Transfer to Hospital Condition: Fair Departure Forms: ED Discharge - Pt. Copy, Patient Portal Self Enrollment Instructions: DI for Abdominal Pain-Adult Referrals: BIJAN SYED [Primary Care Provider] - 1-2 Weeks Home Medications: Ambulatory Orders Digoxin 0.125 mg PO BEDTIME 01/24/14 Metoprolol Succinate [Metoprolol Succinate ER] 50 mg PO DAILY 01/24/14 Gabapentin 300 mg PO TID 04/09/19 Lisinopril 5 mg PO BID 04/09/19 Acetaminophen Arthritis [Tylenol Arthritis] 650 mg PO BID 06/12/19 Cholecalciferol [D 5000] 5,000 unit PO DAILY 06/12/19 Duloxetine HCl 30 mg PO DAILY 06/12/19 Potassium Chloride [K-Tab] 20 meq PO BID 06/12/19 Sulindac 200 mg PO DAILY 06/12/19 Comments: Accepted by ED Physician Dr. Swanson Transfer to Outside Facility - Transfer Information Decision to Transfer Date: 06/12/19 Decision to Transfer Time: 09:36 Reason for Transfer: required specialist not available Accepting Facility: [facility]
[2019-06-12] MEDS ORDERED: MORPHINE SULFATE INJ 10 MG/ML VIAL IV ONE (07:25)
[2019-06-12] MEDS: SODIUM CHLORIDE 0.9% 1000ML 1,000 ML IVS ONE (07:31)
[2019-06-12] MEDS: levoFLOXacin 750MG IV 750 MG in PREMIX BAG 1 BAG IVPB ONE (07:31)
[2019-06-12] MEDS: ONDANSETRON INJ 4 MG/2 ML VIAL IV ONE (07:32)
--- NOTE | 2019-06-12 07:39 | RAD ---
EXAM DESCRIPTION: Chest,1 View CLINICAL HISTORY: 84 years Female, abd pain COMPARISON: July 12, 2017 TECHNIQUE: AP portable chest. FINDINGS: Single view of the chest demonstrates calcified tortuous aorta and stable mild cardiomegaly with normal vascularity. Slightly coarsened markings in the right infrahilar region likely represent mild fibrosis. No consolidation is present. The left lung base is clear. No free abdominal air on this upright portable study noted. No large pleural effusions seen. IMPRESSION: Cardiomegaly and tortuous aorta with no acute cardiopulmonary disease otherwise Electronically signed by: Ethan Ghosh MD 06/12/2019 7:37 AM [employer]
--- NOTE | 2019-06-12 09:04 | CT ---
EXAM DESCRIPTION: CT ABDOMEN AND PELVIS WITH CONTRAST CLINICAL HISTORY: pain vomiting, CT pelvis 04/09/2019. COMPARISON: CT pelvis 04/09/2019. TECHNIQUE: CT of the abdomen and pelvis are performed after IV contrast administration. No oral contrast was given. Multiplanar reconstructions were obtained. FINDINGS: Bibasilar dependent atelectasis. . The liver is normal in contour and enhancement. The gallbladder is surgically absent. Mild reservoir effect within the CBD and proximal intrahepatic ducts. Normal tapering of the CBD traverse the ampulla [place]. The Spleen and pancreas are unremarkable. Incompletely rotated kidneys with anterior position of the bilateral renal hilus representing variant anatomy. No hydronephrosis or nephrolithiasis. Small renal cysts. The colon is decompressed. Scattered colonic diverticula (more pronounced on the proximal transverse colon/hepatic flexure) without definite evidence of diverticulitis. No focal bowel wall thickening or bowel obstruction. The appendix is not clearly visualized, however no focal inflammatory change within the right lower abdominal quadrant is identified to suggest acute appendicitis. Few fluid-filled loops of mildly thickened small bowel within the left and lower abdomen. There is no lymphadenopathy, inflammation, or free fluid observed. The partially decompressed bladder is unremarkable. The uterus is surgically absent. Previously noted vaginal pessary has been removed. Moderate atherosclerotic disease affects the aorta and its branches. Left hip gamma nail intramedullary fixation securing a recent, healing left intertrochanteric fracture. No new displaced pelvic fracture. Moderate degenerative changes of the spine IMPRESSION: 1. Mild to moderate colonic diverticulosis (more pronounced along the proximal transverse colon) without evidence of acute diverticulitis. 2. Few fluid-filled loops of mildly thickened small bowel within the abdomen, nonspecific, but may represent mild enteritis. No bowel obstruction. 3. Prior cholecystectomy. This exam was performed according to our departmental dose-optimization program, which includes automated exposure control, adjustment of the mA and/or kV according to patient size and/or use of iterative reconstruction technique. Electronically signed by: Eamon Rodriguez DO 06/12/2019 9:03 AM [facility]
[2019-06-12] MEDS ORDERED: metroNIDAZOLE IV PREMIX 500MG 100 ML IVPB ONE (09:45)
[2019-06-12] MEDS: metroNIDAZOLE IV PREMIX 500MG 500 MG in PREMIX BAG 1 BAG IVPB ONE (10:23)
[2019-06-12] MEDS: ASPIRIN (CHEWABLE) 81 MG TAB PO ONE (10:26)
[2019-06-12 10:35] VITALS: BP 170/92; O2SAT 95
[2019-06-12 10:36] VITALS: TEMP 98.9
== END 2019-06-12 10:36 | disposition short-term general hospital (02) ==
LOC: ER 06:47
DX: I21.4 Non-ST elevation (NSTEMI) myocardial infarction (principal); J02.0 Streptococcal pharyngitis; E86.0 Dehydration; R79.89 Other specified abnormal findings of blood chemistry; R10.9 Unspecified abdominal pain; I48.91 Unspecified atrial fibrillation; R11.0 Nausea; R01.1 Cardiac murmur, unspecified; I10 Essential (primary) hypertension; E89.0 Postprocedural hypothyroidism; Z85.41 Personal history of malignant neoplasm of cervix uteri; Z98.890 Other specified postprocedural states; Z87.81 Personal history of (healed) traumatic fracture
CPT/HCPCS: 36415; 71045; 74177; 80053; 81001; 82550; 82553; 83605; 83690; 84484; 85025; 85610; 85730; 87040; 87086; 87502; 87880; 93005; J1956; J2405; J3490; J7030

== ENCOUNTER → 2019-06-22 | Outpatient (CLI) | payer MEDICARE | LOC: NC 09:10 | PROVIDERS: ATTEND Emergency Medicine | DX: D64.9 Anemia, unspecified (principal); I49.9 Cardiac arrhythmia, unspecified; I48.91 Unspecified atrial fibrillation; E78.5 Hyperlipidemia, unspecified ==

== ENCOUNTER → 2019-07-22 | Outpatient (CLI) | payer MEDICARE ==
--- NOTE | 2019-07-22 08:33 | RAD ---
EXAM DESCRIPTION: Left femur, 4 radiographs CLINICAL HISTORY: Femoral fracture FINDINGS/ IMPRESSION: Comparison 06/24/2019 Intramedullary ivy and dynamic hip screw fracture fixation for comminuted intertrochanteric fracture of the left proximal femur. Similar displacement of the lesser trochanter. Motion degraded study limits this evaluation/assessment of healing of the intertrochanteric fracture. In order to evaluate healing, CT is recommended No hardware fracture or displacement. No osteolysis around the hardware Diffuse osteopenia. No acute fracture identified Electronically signed by: Ethan Cota MD 07/22/2019 8:31 AM CDT
== END ==
LOC: RAD 07:49
PROVIDERS: ATTEND Orthopaedic Surgery
DX: S72.23 Displaced subtrochanteric fracture of unspecified femur (principal); M85.852 Other specified disorders of bone density and structure, left thigh; Z98.890 Other specified postprocedural states

== ENCOUNTER → 2019-09-02 | Outpatient (CLI) | payer MEDICARE ==
--- NOTE | 2019-09-02 08:32 | RAD ---
EXAM DESCRIPTION: Femur x-ray,Left one view CLINICAL HISTORY: 84 years Female, FX COMPARISON: Previous x-ray left hip and femur July 22, 2019 FINDINGS: AP and lateral x-ray views of the left hip. Orthopedic hardware is seen traversing intertrochanteric fracture with avulsed lesser trochanter. No change in alignment since previous study. No hardware fracture. No change in alignment at the fracture site compared to previous study. Callus formation is prominent medially. The mid and distal femur remain unchanged in appearance. Intramedullary ivy traverses the length of the left femoral diaphysis. IMPRESSION: Healing fracture of the proximal left femur with orthopedic hardware in place. Electronically signed by: John Ibrahim MD 09/02/2019 8:30 AM CDT
--- NOTE | 2019-09-02 08:34 | RAD ---
EXAM DESCRIPTION: Hip x-ray,Left 2 Views CLINICAL HISTORY: 84 years, Female, FX COMPARISON: Previous x-ray images of the left femur July 22, 2019. TECHNIQUE: AP and frog leg lateral x-ray views of the left hip FINDINGS: 2 views of the left hip reveal intertrochanteric fracture with orthopedic hardware in place. No hardware fracture or change in alignment since previous study.. No lytic bone lesion. There is no joint space abnormality observed. IMPRESSION: Negative for fracture or dislocation. Electronically signed by: John Ibrahim MD 09/02/2019 8:33 AM CDT
== END ==
LOC: RAD 07:50
PROVIDERS: ATTEND Orthopaedic Surgery
DX: S72.22 Displaced subtrochanteric fracture of left femur (principal)

== ENCOUNTER → 2019-10-14 | Outpatient (CLI) | payer MEDICARE ==
--- NOTE | 2019-10-14 10:18 | RAD ---
EXAM DESCRIPTION: Femur,Left (accession [id number]), Hip,Left 2 Views (accession [id number]) CLINICAL HISTORY: 84 years Female, FX COMPARISON: 09/02/2019 Findings: Five view(s)/radiograph(s) Healing internally fixated left femoral intertrochanteric fracture. No hardware complication. Similar alignment. Osteopenia. Mild left hip osteoarthritis. No new fracture identified. No dislocation. No focal soft tissue swelling. IMPRESSION: Healing internally fixated left femur fracture. Similar alignment. Electronically signed by: Lee Craven MD 10/14/2019 10:17 AM CDT
--- NOTE | 2019-10-14 10:18 | RAD ---
EXAM DESCRIPTION: Femur,Left (accession [id number]), Hip,Left 2 Views (accession [id number]) CLINICAL HISTORY: 84 years Female, FX COMPARISON: 09/02/2019 Findings: Five view(s)/radiograph(s) Healing internally fixated left femoral intertrochanteric fracture. No hardware complication. Similar alignment. Osteopenia. Mild left hip osteoarthritis. No new fracture identified. No dislocation. No focal soft tissue swelling. IMPRESSION: Healing internally fixated left femur fracture. Similar alignment. Electronically signed by: Lee Craven MD 10/14/2019 10:17 AM CDT
== END ==
LOC: RAD 07:16
PROVIDERS: ATTEND Orthopaedic Surgery
DX: S72.23 Displaced subtrochanteric fracture of unspecified femur (principal); Z98.890 Other specified postprocedural states

== ENCOUNTER → 2019-11-25 | Outpatient (CLI) | payer MEDICARE ==
--- NOTE | 2019-11-25 12:02 | RAD ---
EXAM DESCRIPTION: Femur,Left: CR/DR/XR CLINICAL HISTORY: 84 years Female FX OF FEMUR COMPARISON: October 13 TECHNIQUE: 4 views AP. Lateral. Superior and inferior left femur. FINDINGS: Left intramedullary nail in the femur with Zickel-type nail in the left femoral neck and head. Bone density around the hardware is stable with no evidence of new radiolucency around the hardware. Stable position of the distal screw. Callus formation around the screw tip in the medial femoral cortex. Bone density is decreased but stable. IMPRESSION: Stable ORIF prior left hip fracture with no bony or hardware complications. No acute bony abnormality. Electronically signed by: Clovis Trevizo MD 11/25/2019 12:00 PM CDT
== END ==
LOC: RAD 07:27
PROVIDERS: ATTEND Orthopaedic Surgery
DX: S72.92XD Unspecified fracture of left femur, subsequent encounter for closed fracture with routine healing (principal); Z98.890 Other specified postprocedural states

== ENCOUNTER → 2019-12-10 | Outpatient (CLI) | payer MEDICARE | LOC: NC 16:37 | PROVIDERS: ATTEND Emergency Medicine | DX: I10 Essential (primary) hypertension (principal); D50.9 Iron deficiency anemia, unspecified; I48.91 Unspecified atrial fibrillation ==

== ENCOUNTER → 2019-12-11 | Outpatient (CLI) | payer MEDICARE | LOC: NC 09:07 | PROVIDERS: ATTEND Emergency Medicine | DX: D50.9 Iron deficiency anemia, unspecified (principal); K62.5 Hemorrhage of anus and rectum ==